=== PATIENT | male | born 1985 | race Caucasian/White ===

== ENCOUNTER 2017-02-28 17:58 | Emergency (ER) | payer MEDICAID ==
[~2017-02-28] VITALS: Ht 185.4 cm; Wt 102.2 kg
[2017-02-28 18:40] VITALS: BP 154/78
--- NOTE | 2017-02-28 19:02 | NUR ---
Patient to bed 11.
--- NOTE | 2017-02-28 19:30 | NUR ---
32Y/M PT. PRESENTS TO ED WITH C/O RT KNEE PAIN 5/10 ON REST 8/10 ON MOVEMENT; FELL ON A GRASS PLAYING SOCCER YESTERDAY. HX; HODKINS LYMPHOMA. RX; CHEMO. AAO X4, AMBULATORY WITH STEADY GAIT. NO APPARENT INJURY. C/O RT. KNEE PAIN 7/10. VSS. ER MADE AWARE OF PT. STATUS.
--- NOTE | 2017-02-28 19:33 | NUR ---
Patient being evaluated by DR. MAYEN at bedside.
[2017-02-28] MEDS ORDERED: IBUPROFEN 600 MG TAB PO ONE (19:35)
--- NOTE | 2017-02-28 20:10 | NUR ---
Patient discharged with v/s stable. Written and verbal after care instructions given and explained. Patient alert, oriented and verbalized understanding of instructions. Ambulatory with steady gait. All questions addressed prior to discharge. ID band removed. Patient advised to follow up with PMD. Rx of NAPROSYN 500 MG given. Patient educated on indication of medication including possible reaction and side effects. Opportunity to ask questions provided and answered.
[2017-02-28 20:25] VITALS: BP 140/75
== END 2017-02-28 20:10 | disposition home or self-care (01) ==
LOC: MED 17:58
DX: S80.01XA Contusion of right knee, initial encounter (principal); W19.XXXA Unspecified fall, initial encounter; Y93.66 Activity, soccer; Y92.89 Other specified places as the place of occurrence of the external cause; Y99.8 Other external cause status
CPT/HCPCS: 29505; 73562; 99284

== ENCOUNTER 2017-03-20 20:10 | Emergency (ER) | payer MEDICAID ==
[~2017-03-20] VITALS: Ht 185.4 cm; Wt 99.9 kg
[2017-03-20 20:37] VITALS: BP 132/82
--- NOTE | 2017-03-20 21:45 | NUR ---
PT PLACED IN BED 11
--- NOTE | 2017-03-20 22:09 | NUR ---
32Y M BIB SELF C/O RT FOREARM PAIN, S/P FRONT FOREWARD FALL YESTERDAY.T DENIES ANY LOC/KO. PT AAOX4. +CMS. PT DENIES ANY N/V/D,SOB,CP AT THE MOMENT. PT AAXO4.
[2017-03-20] MEDS ORDERED: IBUPROFEN 800 MG TAB PO ONE (23:30)
[2017-03-21 00:14] VITALS: BP 129/87
== END 2017-03-21 00:14 | disposition home or self-care (01) ==
LOC: MED 20:10
DX: S50.11XA Contusion of right forearm, initial encounter (principal); Z85.71 Personal history of Hodgkin lymphoma; W18.39XA Other fall on same level, initial encounter; Y93.89 Activity, other specified; Y92.89 Other specified places as the place of occurrence of the external cause; Y99.8 Other external cause status
CPT/HCPCS: 73080; 73090; 99284

== ENCOUNTER 2017-05-01 16:55 | Emergency (ER) | payer MEDICAID ==
[~2017-05-01] VITALS: Ht 185.4 cm; Wt 98.1 kg
[2017-05-01 17:24] VITALS: BP 127/71
--- NOTE | 2017-05-01 17:38 | NUR ---
PATIENT PRESENTS TO ED WITH C/O RT LEG PAIN 5/10 S/P GOT KICK ON RT LOWER LEG [employer] PLAYING SOCCER HX; HODGKINS LYMPHOMA RX; ACYCLOVIR; DENIES N/V/D; SKIN IS PINK/WARM/DRY; AAOX4 WITH EVEN AND STEADY GAIT; LUNGS CLEAR BL; HR EVEN AND REGULAR; PT DENIES ANY FEVER, CP, SOB, OR COUGH AT THIS TIME; PATIENT STATES PAIN OF 5/10 AT THIS TIME; VSS; PATIENT POSITIONED FOR COMFORT; HOB ELEVATED; BEDRAILS UP X2; BED DOWN. ER MD MADE AWARE OF PT STATUS.
--- NOTE | 2017-05-01 17:44 | NUR ---
PATIENT TO OF
[2017-05-01] MEDS ORDERED: IBUPROFEN 800 MG TAB PO ONE (18:00)
[2017-05-01 18:26] VITALS: BP 121/70
== END 2017-05-01 18:15 | disposition home or self-care (01) ==
LOC: MED 16:55
DX: S80.11XA Contusion of right lower leg, initial encounter (principal); R03.0 Elevated blood-pressure reading, without diagnosis of hypertension; Z85.71 Personal history of Hodgkin lymphoma; X58.XXXA Exposure to other specified factors, initial encounter; Y93.66 Activity, soccer; Y92.89 Other specified places as the place of occurrence of the external cause; Y99.8 Other external cause status
CPT/HCPCS: 99283

== ENCOUNTER 2017-06-14 16:36 | Emergency (ER) | payer MEDICAID ==
[~2017-06-14] VITALS: Ht 182.9 cm; Wt 98.4 kg
[2017-06-14 17:42] VITALS: BP 119/68
--- NOTE | 2017-06-14 20:10 | NUR ---
Pt presents to ED with lower back pain between lumbar and sacral spine. Pt states bending over in the am when feeling a stabbing pain that has not subsided. Pt denies numbness/tingling to lower extremities. Lower extremity strength within normal limits. Pt denies dysuria. A&Ox4. VSS. ER MD aware. Continue to monitor.
--- NOTE | 2017-06-14 20:12 | NUR ---
PT TAKEN TO BED 2
[2017-06-14] MEDS ORDERED: DIAZEPAM 5 MG TAB PO ONE (20:40)
[2017-06-14] MEDS ORDERED: KETOROLAC 30 MG/ML VIAL IM ONE (20:40)
--- NOTE | 2017-06-14 21:49 | NUR ---
Had Pt ambulate up and down quick. Ambulation is steady but slow d/t pain. Pt denies numbness or tingling to lower extremities. ER MD notified. Continue to monitor.
--- NOTE | 2017-06-14 22:22 | NUR ---
Patient discharged with v/s stable with pain decreased. Written and verbal after care instructions given and explained. Patient alert, oriented and verbalized understanding of instructions. Ambulatory with steady gait. All questions addressed prior to discharge. ID band removed. Patient advised to follow up with PMD. Rx of Naprosyn, Valium, Lidoderm 5% Transdermal Patch given. Patient educated on indication of medication including possible reaction and side effects. Opportunity to ask questions provided and answered.
[2017-06-14 22:24] VITALS: BP 119/68
== END 2017-06-14 22:22 | disposition home or self-care (01) ==
LOC: MED 16:36
DX: S39.012A Strain of muscle, fascia and tendon of lower back, initial encounter (principal); Z85.89 Personal history of malignant neoplasm of other organs and systems; Z85.71 Personal history of Hodgkin lymphoma; X58.XXXA Exposure to other specified factors, initial encounter; Y93.89 Activity, other specified; Y92.89 Other specified places as the place of occurrence of the external cause; Y99.8 Other external cause status
CPT/HCPCS: 72100; 81002; 96372; 99284; J1885

== ENCOUNTER 2017-07-24 22:04 | Emergency (ER) | payer MEDICAID ==
[~2017-07-24] VITALS: Ht 185.4 cm; Wt 99.5 kg
[2017-07-24 22:23] VITALS: BP 131/74
[2017-07-25 00:56] VITALS: BP 131/74
== END 2017-07-25 00:56 | disposition home or self-care (01) ==
LOC: MED 22:04
DX: S93.402A Sprain of unspecified ligament of left ankle, initial encounter (principal); Z85.71 Personal history of Hodgkin lymphoma; X50.1XXA Overexertion from prolonged static or awkward postures, initial encounter; Y93.89 Activity, other specified; Y92.89 Other specified places as the place of occurrence of the external cause; Y99.8 Other external cause status
CPT/HCPCS: 73610; 99284

== ENCOUNTER 2017-11-23 18:29 | Emergency (ER) | payer MEDICAID ==
[~2017-11-23] VITALS: Ht 185.4 cm; Wt 97.5 kg
[2017-11-23 18:52] VITALS: BP 128/77
--- NOTE | 2017-11-23 18:55 | NUR ---
PT STABLE TO WAIT IN LOBBY. INFORMED TO NOTIFY STAFF IF CONDITION WORSENS.
--- NOTE | 2017-11-23 19:46 | NUR ---
PT WAS RECHECKED IN TRIAGE. NO NEW SYMPTOMS, NO APPARENT DISTRESS AT THIS TIME. UPDATED REGARDING WAIT TIMES
--- NOTE | 2017-11-23 20:48 | NUR ---
X-Ray at bedside.
--- NOTE | 2017-11-23 20:48 | NUR ---
PT TAKEN TO BED 6
--- NOTE | 2017-11-23 20:55 | NUR ---
PATIENT PRESENTS TO ED WITH LEFT KNEE PAIN X1 DAY. PATIENT STATES HE WAS PLAYING BASKETBALL AND LANDED ON HIS KNEE WRONG A "FELT" A TEAR. PATIENT DENIES FALLING AT THIS TIME. PATIENT PRESENTS WITH MILD SWELLING IN LEFT KNEE. PATIENT STATES PAIN 6/10 AT THIS TIME. ER MD MADE AWARE OF PATIENT STATUS. WILL CONTINUE TO MONITOR.
--- NOTE | 2017-11-23 22:06 | NUR ---
Dr. Scott evaluating patient at bedside.
[2017-11-23 22:57] VITALS: BP 130/83
== END 2017-11-23 22:58 | disposition home or self-care (01) ==
LOC: MED 18:29
DX: S83.92XA Sprain of unspecified site of left knee, initial encounter (principal); X58.XXXA Exposure to other specified factors, initial encounter; Y93.67 Activity, basketball; Y92.89 Other specified places as the place of occurrence of the external cause; Y99.8 Other external cause status
CPT/HCPCS: 73562; 99284

== ENCOUNTER 2018-02-28 07:05 | Emergency (ER) | payer OTHER ==
[~2018-02-28] VITALS: Ht 185.4 cm; Wt 99.8 kg
[2018-02-28 07:23] VITALS: BP 134/87
[2018-02-28] MEDS ORDERED: KETOROLAC 60 MG/2 ML VIAL IM ONE (08:30)
[2018-02-28] MEDS ORDERED: traMADol 50 MG TAB PO ONE (08:30)
[2018-02-28 09:03] VITALS: BP 130/85
== END 2018-02-28 09:03 | disposition home or self-care (01) ==
LOC: MED 07:05
DX: S33.5XXA Sprain of ligaments of lumbar spine, initial encounter (principal); X50.9XXA Other and unspecified overexertion or strenuous movements or postures, initial encounter; Y93.89 Activity, other specified; Y92.89 Other specified places as the place of occurrence of the external cause; Y99.8 Other external cause status
CPT/HCPCS: 81002; 96372; 99283; J1885